=== PATIENT | female | born 1990 | race Caucasian/White ===

== ENCOUNTER 2021-05-05 16:16 | Inpatient (IN) | payer MEDICAID, SELFPAY ==
[2021-05-05 16:33] VITALS: BP 116/91; PULSE 97; RESP 17; TEMP 36.6; O2SAT 97; BMI 18.6
--- NOTE | 2021-05-05 17:07 | XRR_ITS ---
PROCEDURE INFORMATION: Exam: XR Chest Exam date and time: 05/05/2021 5:07 PM Age: 31 years old Clinical indication: Shortness of breath; Additional info: Dyspnea, vomiting TECHNIQUE: Imaging protocol: XR of the chest. Views: 1 view. COMPARISON: No relevant prior studies available. FINDINGS: Lungs: Unremarkable. No consolidation. Pleural spaces: Unremarkable. No pleural effusion. No pneumothorax. Heart/Mediastinum: Unremarkable. No cardiomegaly. Bones/joints: Unremarkable. XR/XR chest 1V portable [id number] IMPRESSION: No acute findings.
[2021-05-05 17:09] VITALS: BP 155/101; TEMP 36.8
[2021-05-05] MEDS: famotidine 20 mg/2 mL INJ 40 MG IVP (17:32)
[2021-05-05] MEDS: ondansetron 2 mg/ML SDV 2 mL 4 MG IVP ×2 (17:32→23:43)
[2021-05-05] MEDS: sodium chloride 0.9% 1,000 ML 999 ML IV ×3 (17:33→20:57)
--- NOTE | 2021-05-05 17:51 | ED_ITS ---
HPI - General Adult General: Chief complaint: Nausea/Vomiting/Diarrhea Stated complaint: FLU LIKE SYMPTOMS Time Seen by Provider: 05/05/21 16:37 History of Present Illness: Patient is a 31-year-old female who presents the emergency room with complaints of generalized abdominal pain, nausea and vomiting and decreased stooling 3 days. Per patient, suspended, patient has not been able to hold any food down. Patient reports significant upper quadrant izabela pain. Patient denies any diarrhea outside of symptom. Patient reports significant nausea vomiting chills but denies any fever cough, nasal sore throat. Patient has body ache around the stomach area. Otherwise denies chest pain, short of breath palpitation or lightheadedness. Patient denies any melena/hematochezia easier prior history kidney stones, or new vaginal discharge. 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 Patient denies any history of gastroparesis, diabetes, or marijuana use recently. Onset: 3 days ago Duration:3 days Location:home Severity:moderate Associated symptoms: Reports nausea and vomiting; Deny chest pain, dyspnea, rash or palpitations Review of Systems Const: Denies: fever(s) or chills Eyes: Denies: change in vision ENMT: Denies: mouth pain Card: Denies: chest pain or palpitations Resp: Denies: dyspnea or non-productive cough GI: Reports: abdominal pain, nausea and vomiting; Denies: diarrhea : Denies: dysuria Musc: Denies: extremity pain Skin/Breast: Denies: rash or new lesions Neuro: Denies: weakness in extremities Psych: Reports: other (Normal mood) Marty/Lymph: Denies: easy bruising [facility] ED PFSH: Social History (Updated 05/05/21 @ 17:53 by Tyrone Mcclellan MD) Smoking and tobacco status: never smoked Alcohol intake: never Substance/Drug Use: never Physical Exam Const: COMMON NORMALS: alert HENMT: COMMON NORMALS: atraumatic HEAD & SCALP: atraumatic MOUTH: moist mucous membranes abnormal Eye: COMMON NORMALS: EOMs intact bilaterally and conjunctivae normal CONJUNCTIVA: Yes conjunctivae normal Neck/C-Spine: COMMON NORMALS: full ROM and supple Resp: COMMON NORMALS: normal respiratory effort and clear to auscultation bilaterally AUSCULTATION: clear to auscultation bilaterally Cardio: COMMON NORMALS: regular rate RATE: regular rate GI: COMMON NORMALS: Soft to palpation PALPATION: Yes Soft to palpation OTHER: +generalized abd TTP worse in the epigastric area. NO guarding rebound, guarding, rigidity. +b/l CVA tenderness to percussion. Neg Palacios/Neg McBurney's point tenderness, no suprabupic tenderness to palpation. Extremity: COMMON NORMALS: full ROM Neuro: SENSORIUM/ORIENTATION: Yes alert MOTOR EXAM: No Abnormal motor strength present and Other motor observations present (no focal motor deficits) Psych: COMMON NORMALS: speech normal SPEECH: Yes normal speech MOOD & AFFECT: Yes euthymic mood Course Vital Signs: Vital signs: Vital Signs Temperature 98.2 F 05/05/21 17:09 Pulse Rate 97 05/05/21 16:33 Respiratory Rate 17 05/05/21 16:33 Blood Pressure 155/101 05/05/21 17:09 Pulse Oximetry 97 05/05/21 16:33 [facility] - General Adult Medical Decision Making 31-year-old female presents emergency room with generalized abdominal pain nausea vomiting since Monday. On exam, patient has diffuse tenderness palpation worse in the midepigastric area. Patient appears to be dry on exam. Patient has a white count 15.2. CT abdomen pelvis showed diffuse pancreatitis. Lipase of greater than [address] scans found to have acute interstitial pancreatitis. S/p zofran and IVF. Patient failed p.o. challenge in the ED. Disposition: admission Lab Data : 05/05/21 18:00 05/05/21 18:00 Radiology Impressions Chest X-Ray 05/05/21 17:07 IMPRESSION: No acute findings. Abdomen/Pelvis CT 05/05/21 18:35 IMPRESSION: 1. Findings consistent with acute interstitial edematous pancreatitis. 2. Acute peripancreatic fluid with extension into the lesser sac, retroperitoneum, and pericolic gutters. 3. Submucosal fatty deposition within the colon. Mild colitis in the transverse and descending colon is not excluded. 4. 4.2 cm left ovarian cyst. No further imaging is recommended. (Reference: Keyur) References: Keyur et al. Management of Incidental Adnexal Findings on CT and MRI: A White Paper of the ACR Incidental Findings Committee, J Am Crystal Radiol. 2019;17(2):248-254. Laboratory Results WBC 15.2 10^3/uL (4.0-10.0) H 05/05/21 18:00 RBC 4.81 10^6/uL (4.1-5.3) 05/05/21 18:00 Hgb 16.4 g/dL (11.5-15.3) H 05/05/21 18:00 Hct 48.6 % (37.0-47.0) H 05/05/21 18:00 MCV 101.0 fl (81-99) H 05/05/21 18:00 MCH 34.1 pg (28.0-34.0) H 05/05/21 18:00 MCHC 33.7 g/dL (30.0-36.0) 05/05/21 18:00 RDW 12.5 % (12.1-15.1) 05/05/21 18:00 Plt Count 170 10^3/cmm (130-400) 05/05/21 18:00 MPV 9.0 fL (7.4-10.4) 05/05/21 18:00 Neut % (Auto) 89.5 % 05/05/21 18:00 Lymph % (Auto) 2.0 % 05/05/21 18:00 Lane % (Auto) 7.4 % 05/05/21 18:00 Eos % (Auto) 0.0 % 05/05/21 18:00 Baso % (Auto) 0.6 % 05/05/21 18:00 Neut # (Auto) 13.59 10^3/uL (1.8-7.7) H 05/05/21 18:00 Lymph # (Auto) 0.3 10^3/uL (0.8-4.8) L 05/05/21 18:00 Lane # (Auto) 1.1 10^3/uL (0.2-0.9) H 05/05/21 18:00 Eos # (Auto) 0.0 10^3/uL (0.0-0.8) 05/05/21 18:00 Baso # (Auto) 0.1 10^3/uL (0.0-0.1) 05/05/21 18:00 Nucleated RBC % (auto) 0 % 05/05/21 18:00 Nucleated RBCs # 0.0 /100WBC 05/05/21 18:00 Sodium 131 mmol/L (136-145) L 05/05/21 18:00 Potassium 4.5 mmol/L (3.5-5.1) 05/05/21 18:00 Chloride 100 mmol/L (98-107) 05/05/21 18:00 Carbon Dioxide 10 mmol/L (22-29) L 05/05/21 18:00 Anion Gap 25.5 (5-19) H 05/05/21 18:00 BUN 15 mg/dL (6-20) 05/05/21 18:00 Creatinine 0.7 mg/dL (0.5-0.9) 05/05/21 18:00 GFR Calculation 98.3 mL/min (90-130) 05/05/21 18:00 Glucose 96 mg/dL (65-115) 05/05/21 18:00 Calculated Osmolality 273 mOsm/kg (285-295) L 05/05/21 18:00 Calcium 8.9 mg/dL (8.5-10.5) 05/05/21 18:00 Total Bilirubin 0.6 mg/dL (0.15-1.2) 05/05/21 18:00 AST 72 U/L (0-32) H 05/05/21 18:00 ALT 34 U/L (0-33) H 05/05/21 18:00 Alkaline Phosphatase 107 IU/L (35-105) H 05/05/21 18:00 Total Protein 7.6 g/dL (6.6-8.7) 05/05/21 18:00 Albumin 3.9 g/dL (3.5-5.2) 05/05/21 18:00 Globulin 3.7 g/dL (1.3-4.6) 05/05/21 18:00 Lipase > 3904 U/L (13-60) H 05/05/21 18:00 HCG, Qual Negative (Negative) 05/05/21 18:00 Nasal Influ A H1 2009 PCR Not detected (NOT DETECT) 05/05/21 19:35 Coronavirus 229E (PCR) Not detected (NOT DETECT) 05/05/21 15:45 Influenza A (H1) PCR Not detected (NOT DETECT) 05/05/21 19:35 Influenza A (H3) PCR Not detected (NOT DETECT) 02/16/22 19:35 Influenza Type A Ag Cancelled 05/05/21 15:45 Influenza Type A (PCR) Not detected (NOT DETECT) 05/05/21 19:35 Influenza Type B Ag Cancelled 05/05/21 15:45 Influenza Type B (PCR) Not detected (NOT DETECT) 05/05/21 19:35 SARS-CoV-2 (PCR) Not detected (NOT DETECT) 05/05/21 15:45 Imaging Data Other Imaging: Radiologist's impression: [address] [address] [address] Scan Report Signed Patient: Shelbi Luna Unit #: [id number] : 1990 Age/Sex: 31 / F ADM Date: 05/05/21 Loc: ER Room/Bed: Attending Dr: Ordering Provider/Ordering MD: Tyrone Mcclellan MD Date of Service: 05/05/21 Procedure(s): CT abdomen pelvis w con* [id number] Accession Number(s): [id number] Report Number: [id number] PROCEDURE INFORMATION: Exam: CT Abdomen And Pelvis With Contrast Exam date and time: 05/05/2021 6:35 PM Age: 31 years old Clinical indication: Fever and nausea and vomiting; Patient HX: N/v with generalized abdominal pain; Additional info: Eval for infection TECHNIQUE: Imaging protocol: Computed tomography of the abdomen and pelvis with contrast. Radiation optimization: All CT scans at this facility use at least one of these dose optimization techniques: automated exposure control; mA and/or kV adjustment per patient size (includes targeted exams where dose is matched to clinical indication); or iterative reconstruction. Contrast material: OMNI 300; Contrast volume: 95 ml; Contrast route: INTRAVENOUS (IV);? COMPARISON: CR (CHEST, ) 05/05/2021 5:26 PM RADIATION DOSE METRICS: Total DLP (mGy-cm): 722.67 FINDINGS: Liver: Normal. No mass. Gallbladder and bile ducts: Phrygian cap in the gallbladder, a normal variant. No visible gallstones. The bile ducts are normal. Pancreas: Diffuse parenchymal edema in the pancreas. No focal lesion identified. Acute peripancreatic fluid which extends into the lesser sac, retroperitoneum, along the transverse colon, and in the pericolic gutters. No organized pseudocyst. Spleen: Normal. No splenomegaly. Adrenal glands: Normal. No mass. Kidneys and ureters: Normal. No hydronephrosis. Stomach and bowel: Submucosal fatty deposition in the ascending, transverse, and descending colon. Mild superimposed wall thickening is not entirely excluded. The colon is decompressed. The stomach and small bowel are unremarkable. No obstruction. Appendix: The appendix is visualized and is normal. Intraperitoneal space: Mild pelvic ascites. No free air. Vasculature: Unremarkable. No abdominal aortic aneurysm. Lymph nodes: Unremarkable. No enlarged lymph nodes. Urinary bladder: Unremarkable as visualized. Reproductive: 4.2 cm fluid density left ovarian cyst, Hounsfield units 20. The uterus and right ovary are unremarkable. Bones/joints: Lumbar scoliosis. No fracture. Soft tissues: Unremarkable. CT/CT abdomen pelvis w con* [id number] IMPRESSION: 1. Findings consistent with acute interstitial edematous pancreatitis. 2. Acute peripancreatic fluid with extension into the lesser sac, retroperitoneum, and pericolic gutters. 3. Submucosal fatty deposition within the colon.? Mild colitis in the transverse and descending colon is not excluded. 4. 4.2 cm left ovarian cyst. No further imaging is recommended. (Reference: Keyur) ? References: Baer et al. Management of Incidental Adnexal Findings on CT and MRI: A White Paper of the ACR Incidental Findings Committee, J Am Crystal Radiol. 2020 Apr;17(2):248-254. ? ? Dictated By: Rip Salmeron Signed By: Rip Salmeron Signed Date/Time: 05/05/211934 DD/ 34 Discharge Plan Discharge Patient Disposition: Admitted As Inpatient Clinical Impression: Abdominal pain, Nausea & vomiting, Acute pancreatitis Condition: Stable Discharge Diet: Advance as tolerated Discharge Activity: Increase activity as tolerated Coding Level of Care Code ED Imaging Engineer for Chg Fwd Exam Comprehensive
[2021-05-05 18:05] LABS: Basophils # 0.1 10^3/uL (0.0-0.1); Basophils % 0.6 %; Hematocrit 48.6 % (37.0-47.0); Hemoglobin 16.4 g/dL (11.5-15.3); Lymphocytes # 0.3 10^3/uL (0.8-4.8); Mean Corpuscular HGB Conc 33.7 g/dL (30.0-36.0); Mean Corpuscular Hemoglobin 34.1 pg (28.0-34.0); Monocytes # 1.1 10^3/uL (0.2-0.9); Monocytes % 7.4 %; Neutrophils # 13.59 10^3/uL (1.8-7.7); Neutrophils % 89.5 %; Nucleated Red Blood Cells % 0 %; Platelet Count 170 10^3/cmm (130-400); Red Blood Count 4.81 10^6/uL (4.1-5.3); Red Cell Distribution Width 12.5 % (12.1-15.1); White Blood Count 15.2 10^3/uL (4.0-10.0)
[2021-05-05 18:19] LABS: HCG, Serum Qual Negative (Negative)
[2021-05-05 18:30] LABS: Alanine Aminotransferase 34 U/L (0-33); Albumin Level 3.9 g/dL (3.5-5.2); Alkaline Phosphatase 107 IU/L (35-105); Blood Urea Nitrogen 15 mg/dL (6-20); Calcium 8.9 mg/dL (8.5-10.5); Carbon Dioxide 10 mmol/L (22-29); Chloride 100 mmol/L (98-107); Globulin 3.7 g/dL (1.3-4.6); Glomerular Filtration Rate 98.3 mL/min (90-130); Glucose 96 mg/dL (65-115); Osmolality Calculated 273 mOsm/kg (285-295); Sodium 131 mmol/L (136-145); Total Bilirubin 0.6 mg/dL (0.15-1.2); Total Protein 7.6 g/dL (6.6-8.7)
--- NOTE | 2021-05-05 18:35 | CTR_ITS ---
PROCEDURE INFORMATION: Exam: CT Abdomen And Pelvis With Contrast Exam date and time: 05/05/2021 6:35 PM Age: 31 years old Clinical indication: Fever and nausea and vomiting; Patient HX: N/v with generalized abdominal pain; Additional info: Eval for infection TECHNIQUE: Imaging protocol: Computed tomography of the abdomen and pelvis with contrast. Radiation optimization: All CT scans at this facility use at least one of these dose optimization techniques: automated exposure control; mA and/or kV adjustment per patient size (includes targeted exams where dose is matched to clinical indication); or iterative reconstruction. Contrast material: OMNI 300; Contrast volume: 95 ml; Contrast route: INTRAVENOUS (IV); COMPARISON: CR (CHEST, ) 05/05/2021 5:26 PM RADIATION DOSE METRICS: Total DLP (mGy-cm): 722.67 FINDINGS: Liver: Normal. No mass. Gallbladder and bile ducts: Phrygian cap in the gallbladder, a normal variant. No visible gallstones. The bile ducts are normal. Pancreas: Diffuse parenchymal edema in the pancreas. No focal lesion identified. Acute peripancreatic fluid which extends into the lesser sac, retroperitoneum, along the transverse colon, and in the pericolic gutters. No organized pseudocyst. Spleen: Normal. No splenomegaly. Adrenal glands: Normal. No mass. Kidneys and ureters: Normal. No hydronephrosis. Stomach and bowel: Submucosal fatty deposition in the ascending, transverse, and descending colon. Mild superimposed wall thickening is not entirely excluded. The colon is decompressed. The stomach and small bowel are unremarkable. No obstruction. Appendix: The appendix is visualized and is normal. Intraperitoneal space: Mild pelvic ascites. No free air. Vasculature: Unremarkable. No abdominal aortic aneurysm. Lymph nodes: Unremarkable. No enlarged lymph nodes. Urinary bladder: Unremarkable as visualized. Reproductive: 4.2 cm fluid density left ovarian cyst, Hounsfield units 20. The uterus and right ovary are unremarkable. Bones/joints: Lumbar scoliosis. No fracture. Soft tissues: Unremarkable. CT/CT abdomen pelvis w con* [id number] IMPRESSION: 1. Findings consistent with acute interstitial edematous pancreatitis. 2. Acute peripancreatic fluid with extension into the lesser sac, retroperitoneum, and pericolic gutters. 3. Submucosal fatty deposition within the colon. Mild colitis in the transverse and descending colon is not excluded. 4. 4.2 cm left ovarian cyst. No further imaging is recommended. (Reference: Keyur) References: Keyur et al. Management of Incidental Adnexal Findings on CT and MRI: A White Paper of the ACR Incidental Findings Committee, J Am Crystal Radiol. 2019;17(2):248-254.
[2021-05-05 18:48] LABS: Anion Gap 25.5 (5-19); Aspartate Amino Transferase 72 U/L (0-32); Potassium 4.5 mmol/L (3.5-5.1)
[2021-05-05] MEDS: iohexol 300 mg/mL 100 mL Btl IV (18:56)
[2021-05-05 19:20] VITALS: RESP 17
[2021-05-05] MEDS: morphine 4 mg/mL SDV 1 mL IVP ×2 (19:20→23:43)
[2021-05-05 19:33] LABS: Adenovirus Not Detected (NOT DETECT); Chlamydia Pneumoniae Not Detected (NOT DETECT); Coronavirus 229E,HKU1,NL63,OC4 Not Detected (NOT DETECT); Human Metapneumovirus Not Detected (NOT DETECT); Human Rhinovirus/Enterovirus Not Detected (NOT DETECT); Influenza A Not Detected (NOT DETECT); Influenza A H1 Not Detected (NOT DETECT); Influenza A H1-2009 Not Detected (NOT DETECT); Influenza A H3 Not Detected (NOT DETECT); Influenza B Not Detected (NOT DETECT); Mycoplasma Pneumoniae Not Detected (NOT DETECT); Parainfluenza Virus Type 1 Not Detected (NOT DETECT); Parainfluenza Virus Type 2 Not Detected (NOT DETECT); Parainfluenza Virus Type 3 Not Detected (NOT DETECT); Parainfluenza Virus Type 4 Not Detected (NOT DETECT); Respiratory Syncytial Virus A Not Detected (NOT DETECT); Respiratory Syncytial Virus B Not Detected (NOT DETECT); SARS-COV-2 Not Detected (NOT DETECT)
[2021-05-05 19:35] LABS: Influenza A Not Detected (NOT DETECT); Influenza A H1 Not Detected (NOT DETECT); Influenza A H1-2009 Not Detected (NOT DETECT); Influenza A H3 Not Detected (NOT DETECT); Influenza B Not Detected (NOT DETECT); Results from GENMARK
--- NOTE | 2021-05-05 20:05 | P.HP_ITS ---
Providers/Chief Complaint Admitting Physician: Mario Mcrae MD, hospitalist Chief Complaint: FLU LIKE SYMPTOMS History of Present Illness Shelbi Luna is a 31 year old female who presents with 3 days of nausea, vomiting, epigastric pain. The pain radiates to her back. It is sharp. She reports no coffee-ground emesis, blood in her stool or black or tarry stool. She has never had this happen before. Last alcohol intake was over a week ago. Denies any fever, or significant cough. She vomited multiple times, ultimately dry heaving. Denies any significant past medical history problems and no THC use. Review of Systems General: Reports: 10 or more systems reviewed and unremarkable except in HPI and below Const: Denies: fever(s) or chills Eyes: Denies: change in vision ENMT: Denies: throat pain Card: Denies: chest pain Resp: Denies: dyspnea GI: Reports: abdominal pain, nausea and vomiting; Denies: hematemesis, hematochezia or melena : Denies: flank pain Musc: Denies: neck pain Skin/Breast: Denies: rash Neuro: Denies: headache(s) Psych: Denies: anxiety Endo: Denies: polyuria Marty/Lymph: Denies: easy bruising All/Imm: Denies: urticaria Medications/Allergies Home Medications Medication Instructions Recorded Confirmed Last Taken Type acetaminophen 500 mg tablet 500 mg PO Q6H PRN 5 Days #20 tab 05/05/21 Unknown Rx calcium carbonate 1,000 1 tab PO TID PRN 7 Days #21 tab 05/05/21 Unknown Rx mg-simethicone 60 mg chewable tablet (Maalox Advanced) famotidine 20 mg tablet (Pepcid) 20 mg PO BID PRN 10 Days #20 tab 05/05/21 Unknown Rx ondansetron HCl 4 mg tablet 4 mg PO TID PRN 4 Days #12 tab 05/05/21 Unknown Rx (Zofran) PFSH Acute PFSH: Social History (Updated 05/05/21 @ 20:07 by Mario Mcrae MD) Smoking and tobacco status: never smoked Alcohol intake: current Alcohol intake frequency: few times a week Substance/Drug Use: never Other PFSH information: Supplemental PFSH Information: Denies any significant family history, past medical history, surgical history Vitals/I&O/Wt Last Vital Signs Temp 98.2 F 05/05/21 17:09 Pulse 97 05/05/21 16:33 Resp 17 05/05/21 16:33 BP 155/101 05/05/21 17:09 Pulse Ox 97 05/05/21 16:33 Weight last 48 hrs Weight 52.163 kg Physical Exam Narrative: General exam is a white female, reporting her abdominal pain is somewhat better after morphine but still present. She points to her epigastric area. HEENT: Atraumatic normocephalic. Oropharynx clear. Neck is supple no lymphadenopathy or thyromegaly Cardiovascular regular rate and rhythm without murmur, no S3 or S4 Lungs clear no wheezing or crackles Abdomen is soft. The bowel sounds are noted. Tenderness in epigastric area. No obvious organomegaly exams deferred Extremities no cyanosis clubbing or edema, cap refill brisk Skin no rash Neuro no focal deficits. Data : 05/05/21 18:00 05/05/21 18:00 Micro: Anion gap 25 AST 72, ALT 34, alk phos 107 Calcium 8.9 Bilirubin 0.6 Lipase greater than 3900 Albumin 3.9 hCG negative Urinalysis pending PCR negative, influenza negative Abdominal pelvic CT demonstrates findings consistent with acute edematous pancreatitis, with some peripancreatic fluid. 4.2 cm left ovarian cyst. Chest x-ray negative A&P Assessment and plan (1) Acute pancreatitis: Significant acute pancreatitis. No obvious cause. Last alcohol intake per history was 1 week ago. No family history of any pancreatitis. Check triglyceride level N.p.o. except clear liquids as tolerated. Discussed with patient to limit amount Pain control Nausea control Repeat lipase tomorrow Observation currently Status: Acute (2) Abdominal pain: Secondary to acute pancreatitis. Cannot rule out duodenal ulcer or cholecystitis completely. LFTs and alk phos slightly high. Will place on Protonix IV, and check gallbladder ultrasound as well. Ultrasound is more sensitive for gallbladder than CT. Check hepatitis panel. Status: Acute Plan Full code Lovenox for DVT prophylaxis Attestations Medical Necessity Statement*: Will need less than 2 midnight stay for evaluation and treatment of acute pancreatitis. Coding Level of Care Code Acute Improvement Rn for [employer] Diagnoses Acute pancreatitis K85.90 Abdominal pain R10.9
[2021-05-05 20:25] LABS: Add Urine Microscopic? YES; Bilirubin Urine Neg (Negative); Blood Urine 2+ (Negative); Glucose Urine UA Norm (Normal); Ketones Urine 3+ (Negative); Leukocyte Esterase Urine Negative (Negative); Nitrate Urine Negative (Negative); Protein Urine Trace (Negative); Specific Gravity, Urine 1.015 (1.005-1.030); Urine Appearance Clear (CLEAR); Urine Color Yellow (Yellow); Urobilinogen Urine Neg (Negative); pH Urine 5 (5-7)
[2021-05-05 20:26] LABS: Add Urine Culture? No; Fine Granular Casts Urine 0-4 /lpf; Hyaline Casts Urine 0-4 /lpf; RBC Urine RARE /hpf (0-2); Squamous Epithelial Cell Urine 0-4 /hpf (0-5)
[2021-05-05 20:30] VITALS: BP 158/90; PULSE 66; RESP 19; O2SAT 97
[2021-05-05 20:44] LABS: Thyroid Stimulating Hormone 1.03 uIU/mL (0.27-4.20); Triglycerides 198 mg/dL (0-150)
--- NOTE | 2021-05-05 20:51 | USR_ITS ---
PROCEDURE INFORMATION: Exam: US Abdomen, Limited; Right Upper Quadrant Exam date and time: 05/05/2021 8:51 PM Age: 31 years old Clinical indication: Nausea and vomiting; Abdominal pain; Acute; Patient HX: PT reports nausea/vomiting and severe back pain; Additional info: Transaminitis TECHNIQUE: Imaging protocol: US abdomen. Real time ultrasound with image documentation. Limited exam focused on the right upper quadrant. COMPARISON: CT abdomen pelvis w con* [id number] 05/05/2021 6:55 PM FINDINGS: Liver: The liver is hyperechoic. Gallbladder: The gallbladder is folded with a possible septation. No gallstones. No wall thickening. Common bile duct: Common bile duct 3 mm. Pancreas: Mild inhomogeneity of the pancreas. No focal lesion identified. Right kidney: Normal. No mass. No hydronephrosis. Intraperitoneal space: Small amount of free fluid adjacent to the gallbladder and posterior to left liver lobe. US/US gall bladder [id number] IMPRESSION: 1. No visible gallstones or gallbladder wall thickening. There is folding and a possible septation in the gallbladder. 2. Mild inhomogeneity of the pancreas with scattered fluid. This most likely represents acute pancreatitis, when correlated with the CT findings.
[2021-05-05 21:20] VITALS: RESP 17
[2021-05-05] MEDS: pantoprazole 40 mg SDV IVP (21:20)
[2021-05-05] MEDS: enoxaparin 40 mg/0.4 mL Syringe SUBCUT (21:20)
[2021-05-05] MEDS: morphine 4 mg/mL SDV 1 mL 2 MG IVP (21:20)
[2021-05-05 21:39] LABS: Hepatitis A Antibody IgM Non-Reactive (Nonreactive); Hepatitis B Core IgM Non-Reactive (Nonreactive); Hepatitis B Surface Antigen Non-Reactive (Nonreactive); Hepatitis C Virus Antibody Non-Reactive (Nonreactive)
[2021-05-05 23:20] VITALS: BMI 18.6
[2021-05-05] MEDS: dextrose 5%-sod chloride 0.9% 1,000 ML 125 ML IV (23:27)
[2021-05-05 23:43] VITALS: RESP 20
[2021-05-05] MEDS: acetaminophen 325 mg Tablet 650 MG PO (23:44)
[2021-05-06] VITALS (18 sets, daily range): BP systolic 104–172; BP diastolic 62–118; PULSE 76–144; RESP 13–22; TEMP 36.6–38.1; O2SAT 96–100
[2021-05-06] MEDS: hyDRALAzine 20 mg/mL INJ 1 mL 10 MG IVP ×4 (01:01→19:39)
[2021-05-06] MEDS: HYDROmorphone 1 mg/mL INJ 1 mL 0.5 MG IVP ×8 (01:02→21:42)
[2021-05-06 05:15] LABS: Basophils % 0.3 %; Hematocrit 42.6 % (37.0-47.0); Lymphocytes # 0.6 10^3/uL (0.8-4.8); Mean Corpuscular HGB Conc 35.2 g/dL (30.0-36.0); Mean Corpuscular Hemoglobin 34.7 pg (28.0-34.0); Mean Corpuscular Volume 98.6 fl (81-99); Mean Platelet Volume 9.7 fL (7.4-10.4); Monocytes # 1.1 10^3/uL (0.2-0.9); Monocytes % 7.1 %; Neutrophils # 13.33 10^3/uL (1.8-7.7); Neutrophils % 88.1 %; Nucleated Red Blood Cells % 0 %; Platelet Count 145 10^3/cmm (130-400); Red Blood Count 4.32 10^6/uL (4.1-5.3); Red Cell Distribution Width 12.8 % (12.1-15.1); White Blood Count 15.1 10^3/uL (4.0-10.0)
[2021-05-06 05:40] LABS: Alanine Aminotransferase 27 U/L (0-33); Albumin Level 3.8 g/dL (3.5-5.2); Alkaline Phosphatase 94 IU/L (35-105); Anion Gap 15.9 (5-19); Aspartate Amino Transferase 57 U/L (0-32); Blood Urea Nitrogen 8 mg/dL (6-20); Calcium 8.1 mg/dL (8.5-10.5); Carbon Dioxide 15 mmol/L (22-29); Chloride 102 mmol/L (98-107); Glomerular Filtration Rate 144.9 mL/min (90-130); Glucose 161 mg/dL (65-115); Magnesium 1.3 mg/dL (1.7-2.3); Osmolality Calculated 270 mOsm/kg (285-295); Potassium 3.9 mmol/L (3.5-5.1); Sodium 129 mmol/L (136-145); Total Bilirubin 0.5 mg/dL (0.15-1.2); Total Protein 6.8 g/dL (6.6-8.7)
[2021-05-06] MEDS: sodium chloride 0.9% 1,000 ML 125 ML IV ×3 (05:51→21:44)
[2021-05-06 06:24] LABS: Lipase 3925 U/L (13-60)
[2021-05-06] MEDS: pantoprazole 40 mg SDV IVP ×2 (08:52→20:36)
[2021-05-06] MEDS: multivitamin therapeutic Tablet 1 TAB PO (08:52)
[2021-05-06] MEDS: thiamine 100 mg Tablet PO (08:52)
[2021-05-06] MEDS: magnesium sulfate premix 2 GM/50 ML PIGGYBACK IV (08:52)
[2021-05-06] MEDS: folic acid 1 mg Tablet PO (08:52)
--- NOTE | 2021-05-06 10:19 | PC.CHAP ---
Pastoral Care Encounter/Spiritual Assessment Type of Contact [] Declined retail project merchandiser visit [] Patient/Family/Request visit [] Outpatient visit [] Follow-up visit [] Physician referral [] Code/Alert [x] Routine visit [] Staff referral [] Actively dying [] Patient sleeping [] Family support [] [] Out of room [] Palliative care [] [x] Receiving care in room [] Pre-surgical visit [] Trauma [] Long length of stay [] ICU visit [] Other: Relational/Emotional Strength [] Patient feels connected with others/family/visitors/staff [] Distress [] Loneliness/isolation [] Abandonment Spirituality of Patient [] Person of Tricia [] Attends Bahai of their Tricia [] Believes in Prayer [] Reads Bible or Caodaism materials [] There are Spiritual issues to be addressed Fruit And Vegetable Parer Interventions [] Prayer [] Active listening [] Non-anxious presence [] Spiritual/emotional support [] Crisis/trauma care [] Spiritual counseling [] Bereavement support [] Provided bereavement packet [] Provided Bible/devotional materials [] Provided toy/stuffed animal, coloring book to patient or family member [] Provided Communion [] Anointing/Onida [] Salvation [] Completed spiritual assessment [] Other: Impact on Illness or Injury [] Angry [] Fearful [x] Anxious [] Often cries [] Exhaustion [] Unable to work [] Unable to attend scientology [] Unable to walk/stand [] Unable to read [] Unable to drive [] Unable to eat/drink [] Unable to sleep [] Unable to be with family [] Patient intubated [] Other: Summary 31 this the first time deal with Pancritis floods to bring up her Humons feels good has a good attitude waiting doctors report Time spent with patient 10 mins
--- NOTE | 2021-05-06 12:37 | PC.SOCIAL ---
[facility] applications signed by patient and sent back to smita wyatt
[2021-05-06] MEDS: acetaminophen 325 mg Tablet 650 MG PO (19:39)
[2021-05-06] MEDS: enoxaparin 40 mg/0.4 mL Syringe SUBCUT (20:36)
--- NOTE | 2021-05-06 20:56 | P.PN_ITS ---
Subjective Subjective: Upper abdominal pain/discomfort in a circular fashion from epigastrium encircling both sides. Intermittent nausea. Eructation. No appetite. Vitals/I&O/Wt Last Vital Signs Temp 100.5 F H 05/06/21 20:00 Pulse 142 H 05/06/21 20:00 Resp 18 05/06/21 20:00 BP 104/103 05/06/21 20:00 Pulse Ox 97 05/06/21 20:00 05/06/21 05/06/21 05/06/21 06:59 14:59 22:59 Intake Total 1000 / 1000 5050 / 5050 Output Total 550 / 550 600 / 600 200 / 800 Balance 450 / 450 4450 / 4450 -200 / 4250 Weight last 48 hrs Weight 52.163 kg Weight 52.163 kg Physical Exam Const: COMMON NORMALS: no acute distress and patient oriented x3 OTHER: Appears tired or slightly impaired, mildly slurred slowed speech. HENMT: COMMON NORMALS: oropharynx normal Neck/C-Spine: COMMON NORMALS: no JVD Resp: COMMON NORMALS: normal respiratory effort and clear to auscultation bilaterally AUSCULTATION: clear to auscultation bilaterally Cardio: COMMON NORMALS: no JVD, regular rhythm, S1 normal heart sound present, S2 normal heart sound present and No murmurs present (Cardio) RHYTHM: regular rhythm HEART SOUNDS: S1 normal heart sound present and S2 normal heart sound present GI: COMMON NORMALS: Normal to inspection, nondistended, normoactive bowel sounds present, Soft to palpation and non-tender PALPATION: Yes Soft to palpation Extremity: COMMON NORMALS: no joint enlargement and no pedal edema Neuro: COMMON NORMALS: patient oriented x3 and moves all extremities Skin: COMMON NORMALS: no rashes or lesions noted GENERAL SKIN EXAM: no rashes or lesions noted Data : 05/06/21 04:22 05/06/21 04:22 A&P Assessment and plan (1) Acute pancreatitis: Reports excessive alcohol intake, reports she has a plan to stop drinking with support of her friend, and if she cannot stop on her own will be seeking rehab. Discussed with her we will request CM to provide resources for her to be able to seek rehabilitation. States she should be able to stop without difficulty given she always rosie up before work days and does not ever drink while working. Nonbiliary. Triglycerides not significantly elevated. Calcium okay. Continue IVF. N.p.o. except clear liquids as tolerated. Discussed with patient to limit amount Pain control Nausea control Repeat lipase Status: Acute (2) Abdominal pain: Secondary to acute pancreatitis. No sign of acute cholecystitis on ultrasound. Continue Protonix. Negative hepatitis panel. Status: Acute Plan Alcohol withdrawal: Tachycardia, nausea, denies history of severe alcohol withdrawal with seizure, delirium, CIWA protocol added this morning. Continue. Full code Lovenox for DVT prophylaxis Attestations Medical Necessity Statement*: Continue admission for assessment management of acute pancreatitis. Coding Level of Care Code Acute Cutting Table Operator First for [facility] Diagnoses Acute pancreatitis K85.90 Abdominal pain R10.9
--- NOTE | 2021-05-06 21:28 | PC.NURSE ---
2000 Pt sitting up in bed using cell phone. Reports abd pain to be better at present. VS noted to be out of range. Tylenol and hydralazine given per PRN order. Pt appears slightly anxious. Says she does not feel bad. Tolerates liquids well. Denies nausea.
--- NOTE | 2021-05-06 21:48 | PC.NURSE ---
2139 Ambulating in room. Reports abd pain/bloating returning. Says walking seems to help some. Pain med given as ordered prn. VS retaken. Temp improved. Others remain same. See VS log. Will continue to monitor.
--- NOTE | 2021-05-06 22:11 | PC.NURSE ---
2[address] at 133 noted.
[2021-05-06] MEDS: LORazepam 2 mg/mL INJ 1 mL IM (22:39)
--- NOTE | 2021-05-06 22:43 | PC.NURSE ---
2240 Pt axious, jumpy to loud sounds or person entering room. HR 160-170. Lorazepam given as ordered.
--- NOTE | 2021-05-06 22:56 | PC.NURSE ---
5397 Dr. Mcrae notified of pt VS and CIWA score. Aware of interventions of medications given. He say ok nothing further at this time. Continue to observe.
--- NOTE | 2021-05-06 23:15 | PC.NURSE ---
2310 Pt sleeping on side in bed. HR 140-160. Dr. Mcrae aware.
[2021-05-07] VITALS (12 sets, daily range): BP systolic 135–152; BP diastolic 85–101; PULSE 114–138; RESP 16–20; TEMP 36.9–38.3; O2SAT 97–99
[2021-05-07] MEDS: acetaminophen 325 mg Tablet 650 MG PO (03:49)
[2021-05-07] MEDS: LORazepam 2 mg/mL INJ 1 mL IVP (03:50)
--- NOTE | 2021-05-07 03:54 | PC.NURSE ---
0350 Pt awake after vitals signs taken. Easily jumps/scares when person enters pt room. High alert to alarms on unit. CIWA 10. Lorazepam 2mg IVP given as ordered. Tylenol given for temp as ordered. Note VS log.
--- NOTE | 2021-05-07 04:48 | PC.NURSE ---
0445 Resting in bed. Resp E/U. No distress. Temp 99.2, HR 113.
[2021-05-07 05:31] LABS: Basophils # 0.1 10^3/uL (0.0-0.1); Basophils % 0.7 %; Eosinophils % 0.1 %; Hematocrit 37.5 % (37.0-47.0); Hemoglobin 13.4 g/dL (11.5-15.3); Lymphocytes # 0.5 10^3/uL (0.8-4.8); Lymphocytes % 5.6 %; Mean Corpuscular HGB Conc 35.7 g/dL (30.0-36.0); Mean Corpuscular Hemoglobin 33.8 pg (28.0-34.0); Mean Corpuscular Volume 94.7 fl (81-99); Mean Platelet Volume 10.6 fL (7.4-10.4); Monocytes # 1.1 10^3/uL (0.2-0.9); Monocytes % 12.9 %; Neutrophils # 6.64 10^3/uL (1.8-7.7); Neutrophils % 80.3 %; Nucleated Red Blood Cells % 0 %; Platelet Count 110 10^3/cmm (130-400); Red Blood Count 3.96 10^6/uL (4.1-5.3); Red Cell Distribution Width 12.6 % (12.1-15.1); White Blood Count 8.3 10^3/uL (4.0-10.0)
[2021-05-07] MEDS: sodium chloride 0.9% 1,000 ML 125 ML IV ×3 (05:35→21:27)
[2021-05-07 05:56] LABS: Alanine Aminotransferase 17 U/L (0-33); Albumin Level 3.3 g/dL (3.5-5.2); Alkaline Phosphatase 63 IU/L (35-105); Anion Gap 15.8 (5-19); Aspartate Amino Transferase 40 U/L (0-32); Blood Urea Nitrogen 6 mg/dL (6-20); Calcium 8.1 mg/dL (8.5-10.5); Carbon Dioxide 18 mmol/L (22-29); Chloride 98 mmol/L (98-107); Globulin 2.2 g/dL (1.3-4.6); Glomerular Filtration Rate 261.2 mL/min (90-130); Glucose 79 mg/dL (65-115); Magnesium 1.6 mg/dL (1.7-2.3); Osmolality Calculated 265 mOsm/kg (285-295); Sodium 129 mmol/L (136-145); Total Bilirubin 0.5 mg/dL (0.15-1.2); Total Protein 5.5 g/dL (6.6-8.7)
--- NOTE | 2021-05-07 06:00 | XR_ITS ---
WS: [id number] Portable AP upright chest, 05/07/2021 Clinical Data: Hypoxia Comparison: Portable chest, 05/05/2021. Findings: There are bilateral basilar pulmonary opacities consistent with pneumonia and/or atelectasi s. There is a small right pleural effusion. The diaphragms are slightly elevated because of the limit ed inspiratory effort. The heart is normal. No nodules or masses are seen. Monitor leads are on the c hest wall. XR/XR chest 1V portable [id number] Impression: 1. Bilateral basilar pulmonary opacities consistent with pneumonia and/or atele ctasis. 2. Small right pleural effusion.
[2021-05-07 06:07] LABS: Potassium 2.8 mmol/L (3.5-5.1)
[2021-05-07 06:24] LABS: Lipase 1040 U/L (13-60)
[2021-05-07] MEDS: HYDROmorphone 1 mg/mL INJ 1 mL 0.5 MG IVP ×4 (08:39→19:37)
[2021-05-07] MEDS: lidocaine 1% 5 ML in potassium chloride premix 100 ML 25 ML IV ×2 (09:08→21:27)
[2021-05-07] MEDS: magnesium sulfate premix 2 GM/50 ML PIGGYBACK IV (09:09)
[2021-05-07] MEDS: folic acid 1 mg Tablet PO (09:10)
[2021-05-07] MEDS: pantoprazole 40 mg SDV IVP ×2 (09:10→21:27)
[2021-05-07] MEDS: multivitamin therapeutic Tablet 1 TAB PO (09:11)
[2021-05-07] MEDS: thiamine 100 mg Tablet PO (09:11)
--- NOTE | 2021-05-07 17:52 | PC.NURSE ---
patient has remained tachy throughout the day. MD silveira
--- NOTE | 2021-05-07 19:13 | PM.PN ---
Subjective Subjective: Still slightly better. Still intermittent nausea. Tolerating small amounts of oral intake. Not ready to advance diet. Occasional single dry heaves. Vitals/I&O/Wt Last Vital Signs Temp 99.4 F 05/07/21 16:00 Pulse 117 H 05/07/21 16:00 Resp 18 05/07/21 16:55 BP 146/97 05/07/21 16:00 Pulse Ox 99 05/07/21 16:00 05/07/21 05/07/21 05/07/21 06:59 14:59 22:59 Intake Total 1181.25 / 7419.167 1342.5 / 1342.5 240 / 1582.5 Output Total 1000 / 1000 200 / 1200 Balance 1181.25 / 6619.167 342.5 / 342.5 40 / 382.5 Weight last 48 hrs Weight 52.163 kg Physical Exam Const: COMMON NORMALS: no acute distress and patient oriented x3 OTHER: Sluggish. HENMT: COMMON NORMALS: oropharynx normal Neck/C-Spine: COMMON NORMALS: no JVD Resp: COMMON NORMALS: normal respiratory effort and clear to auscultation bilaterally AUSCULTATION: clear to auscultation bilaterally Cardio: COMMON NORMALS: no JVD, regular rhythm, S1 normal heart sound present, S2 normal heart sound present and No murmurs present (Cardio) RHYTHM: regular rhythm HEART SOUNDS: S1 normal heart sound present and S2 normal heart sound present GI: COMMON NORMALS: Normal to inspection, nondistended, normoactive bowel sounds present, Soft to palpation and non-tender PALPATION: Yes Soft to palpation Extremity: COMMON NORMALS: no joint enlargement and no pedal edema Neuro: COMMON NORMALS: patient oriented x3 and moves all extremities Skin: COMMON NORMALS: no rashes or lesions noted GENERAL SKIN EXAM: no rashes or lesions noted Data : 05/07/21 04:19 05/07/21 04:19 A&P Assessment and plan (1) Acute pancreatitis: Reports excessive alcohol intake, reports she has a plan to stop drinking with support of her friend, and if she cannot stop on her own will be seeking rehab. Discussed with her we will request to provide resources for her to be able to seek rehabilitation. States she should be able to stop without difficulty given she always rosie up before work days and does not ever drink while working. Nonbiliary. Triglycerides not significantly elevated. Calcium okay. Continue IVF. N.p.o. except clear liquids as tolerated. Discussed with patient to limit amount Pain control Nausea control Repeat lipase Status: Acute (2) Aspiration pneumonia: With possible sepsis, sinus tachycardia, fever up to 101 Fahrenheit this morning at 4 AM. Chest x-ray with bilateral basilar pulmonary opacities, small right pleural effusion. Collect blood cultures. Start Zosyn. Status: Acute (3) Abdominal pain: Secondary to acute pancreatitis. No sign of acute cholecystitis on ultrasound. Continue Protonix. Negative hepatitis panel. Status: Acute (4) Hypokalemia: Received replacement. Recheck level. Status: Acute (5) Hypomagnesemia: Received replacement. Recheck level. Status: Acute Plan Alcohol withdrawal: Tachycardia, nausea, denies history of severe alcohol withdrawal with seizure, delirium, CIWA protocol added this morning. Continue. CM to provide resources for rehabilitation. Number cytopenia: Suspected related to alcohol abuse, possibly related to sepsis. Full code Lovenox for DVT prophylaxis Attestations Medical Necessity Statement*: Continue admission for assessment management of acute pancreatitis, aspiration pneumonia. Coding Level of Care Code Acute Outsole Scheduler for [facility] Diagnoses Acute pancreatitis K85.90 Abdominal pain R10.9 Aspiration pneumonia J69.0 Hypokalemia E87.6 Hypomagnesemia E83.42
[2021-05-07] MEDS: piperacillin-tazobactam 3.375 GM in sodium chloride 0.9% (plus) 50 ML IV (19:31)
[2021-05-07] MEDS: hyDRALAzine 20 mg/mL INJ 1 mL 10 MG IVP (19:31)
[2021-05-07 19:54] LABS: Magnesium 1.8 mg/dL (1.7-2.3)
[2021-05-07 19:57] LABS: Potassium 2.9 mmol/L (3.5-5.1)
--- NOTE | 2021-05-07 21:03 | PC.NURSE ---
Voalte message sent to Dr. Summers regarding patients elevated heart rate along with potassium of 2.9. New order 40meq k-rider x's 1 now.
[2021-05-07] MEDS: enoxaparin 40 mg/0.4 mL Syringe SUBCUT (21:27)
[2021-05-08] VITALS (15 sets, daily range): BP systolic 120–151; BP diastolic 81–110; PULSE 86–126; RESP 16–18; TEMP 36.4–37.8; O2SAT 94–99
[2021-05-08] MEDS: HYDROmorphone 1 mg/mL INJ 1 mL 0.5 MG IVP ×6 (00:01→20:38)
[2021-05-08] MEDS: piperacillin-tazobactam 3.375 GM in sodium chloride 0.9% (plus) 50 ML IV ×3 (02:09→18:18)
[2021-05-08 05:10] LABS: Basophils % 1.1 %; Eosinophils % 1.6 %; Hematocrit 34.1 % (37.0-47.0); Hemoglobin 12.1 g/dL (11.5-15.3); Lymphocytes # 0.6 10^3/uL (0.8-4.8); Lymphocytes % 30.5 %; Mean Corpuscular HGB Conc 35.5 g/dL (30.0-36.0); Mean Corpuscular Hemoglobin 34.2 pg (28.0-34.0); Mean Corpuscular Volume 96.3 fl (81-99); Mean Platelet Volume 10.6 fL (7.4-10.4); Monocytes # 0.4 10^3/uL (0.2-0.9); Monocytes % 20.5 %; Neutrophils % 45.8 %; Nucleated Red Blood Cells % 0 %; Platelet Count 141 10^3/cmm (130-400); Red Blood Count 3.54 10^6/uL (4.1-5.3); White Blood Count 1.9 10^3/uL (4.0-10.0)
[2021-05-08 05:46] LABS: Alanine Aminotransferase 15 U/L (0-33); Albumin Level 3.4 g/dL (3.5-5.2); Alkaline Phosphatase 69 IU/L (35-105); Aspartate Amino Transferase 27 U/L (0-32); Blood Urea Nitrogen 3 mg/dL (6-20); Calcium 8.3 mg/dL (8.5-10.5); Carbon Dioxide 22 mmol/L (22-29); Chloride 100 mmol/L (98-107); Glomerular Filtration Rate 261.2 mL/min (90-130); Glucose 91 mg/dL (65-115); Lipase 193 U/L (13-60); Magnesium 1.6 mg/dL (1.7-2.3); Osmolality Calculated 270 mOsm/kg (285-295); Sodium 132 mmol/L (136-145); Total Bilirubin 0.6 mg/dL (0.15-1.2); Total Protein 6.4 g/dL (6.6-8.7)
[2021-05-08 06:14] LABS: Neutrophils # 0.87 10^3/uL (1.8-7.7); Slide Review Slide Review Perform
[2021-05-08] MEDS: multivitamin therapeutic Tablet 1 TAB PO (08:41)
[2021-05-08] MEDS: thiamine 100 mg Tablet PO (08:41)
[2021-05-08] MEDS: folic acid 1 mg Tablet PO (08:41)
[2021-05-08] MEDS: pantoprazole 40 mg SDV IVP ×2 (08:41→20:38)
[2021-05-08] MEDS: sodium chloride 0.9% 1,000 ML 125 ML IV ×2 (10:41→20:39)
[2021-05-08] MEDS: magnesium sulfate premix 2 GM/50 ML PIGGYBACK IV (10:42)
--- NOTE | 2021-05-08 18:07 | PM.PN ---
Subjective Subjective: Bothered by upper abdominal pain, in a circular pattern radiating around the abdomen encircling to the back. Less appetite today. Loose stools today. Vitals/I&O/Wt Last Vital Signs Temp 99.3 F 05/08/21 14:52 Pulse 107 H 05/08/21 14:52 Resp 16 05/08/21 14:52 BP 134/91 05/08/21 14:52 Pulse Ox 97 05/08/21 14:52 05/08/21 05/08/21 05/08/21 06:59 14:59 22:59 Intake Total 1185 / 5447.5 750 / 750 50 / 800 Output Total 1100 / 2700 400 / 400 Balance 85 / 2747.5 350 / 350 50 / 400 Physical Exam Const: COMMON NORMALS: no acute distress and patient oriented x3 HENMT: COMMON NORMALS: oropharynx normal Neck/C-Spine: COMMON NORMALS: no JVD Resp: COMMON NORMALS: normal respiratory effort and clear to auscultation bilaterally AUSCULTATION: clear to auscultation bilaterally Cardio: COMMON NORMALS: no JVD, regular rhythm, S1 normal heart sound present, S2 normal heart sound present and No murmurs present (Cardio) RHYTHM: regular rhythm HEART SOUNDS: S1 normal heart sound present and S2 normal heart sound present GI: COMMON NORMALS: Normal to inspection, nondistended, normoactive bowel sounds present and Soft to palpation PALPATION: Yes Soft to palpation and Yes Tenderness to palpation present (GI) Details: other (Upper) Extremity: COMMON NORMALS: no joint enlargement and no pedal edema Neuro: COMMON NORMALS: patient oriented x3 and moves all extremities Skin: COMMON NORMALS: no rashes or lesions noted GENERAL SKIN EXAM: no rashes or lesions noted Data : 05/08/21 04:40 05/08/21 04:40 Micro: Microbiology 05/07/21 19:27 Blood Culture - Preliminary Blood SPECIMEN COLLECTED 05/07/21 19: Blood Culture - Preliminary Blood SPECIMEN COLLECTED A&P Assessment and plan (1) Acute pancreatitis: Lipase improving, down to 183, but still pain today. Follow-up tired. P.o. intake is tolerating. Replace electrolytes. CM provided her with resources for alcohol use disorder rehabilitation. Nonbiliary. Triglycerides not significantly elevated. Calcium okay. Continue IVF. N.p.o. except clear liquids as tolerated. Discussed with patient to limit amount Pain control Nausea control Repeat lipase Status: Acute (2) Leukopenia: Worsened leukopenia today with neutropenia and delusional effect with IV fluids. Discussed with her. Suspect bone marrow suppression secondary to EtOH. Possible sepsis with pneumonia with leukopenia, sinus tachycardia. Less likely Zosyn since this was only started last night with counseling before that. Recheck counts. Encourage abstinence from EtOH. Status: Acute (3) Aspiration pneumonia: Possible sepsis with leukopenia, sinus tachycardia. Fever, fever subsiding. Chest x-ray with bilateral basilar pulmonary opacities, small right pleural effusion. Follow blood cultures. For now continue Zosyn. Status: Acute (4) Abdominal pain: Secondary to acute pancreatitis. No sign of acute cholecystitis on ultrasound. Continue Protonix. Negative hepatitis panel. Status: Acute (5) Hypokalemia: Given replacement. Recheck level. Status: Acute (6) Hypomagnesemia: Given replacement. Recheck level. Status: Acute Plan Alcohol withdrawal: Tachycardia, nausea, denies history of severe alcohol withdrawal with seizure, delirium, CIWA protocol added this morning. Continue. CM provided resources for rehabilitation. Full code Lovenox for DVT prophylaxis Attestations Medical Necessity Statement*: Continue admission for assessment management of acute pancreatitis, with poor oral intake, electrolyte deficiencies, leukopenia. Coding Level of Care Code Acute Warp Scouring Vat Tender for [facility] Diagnoses Acute pancreatitis K85.90 Aspiration pneumonia J69.0 Abdominal pain R10.9 Hypokalemia E87.6 Hypomagnesemia E83.42 Leukopenia D72.819
[2021-05-08] MEDS: enoxaparin 40 mg/0.4 mL Syringe SUBCUT (20:38)
[2021-05-08] MEDS: hyDRALAzine 20 mg/mL INJ 1 mL 10 MG IVP (23:58)
[2021-05-09] VITALS (8 sets, daily range): BP systolic 138–158; BP diastolic 96–110; PULSE 94–110; RESP 14–18; TEMP 36.3–36.8; O2SAT 94–100
[2021-05-09] MEDS: HYDROmorphone 1 mg/mL INJ 1 mL 0.5 MG IVP ×2 (01:06→05:16)
[2021-05-09] MEDS: piperacillin-tazobactam 3.375 GM in sodium chloride 0.9% (plus) 50 ML IV ×3 (03:55→18:14)
[2021-05-09 04:57] LABS: Basophils # 0.1 10^3/uL (0.0-0.1); Basophils % 1.3 %; Eosinophils # 0.1 10^3/uL (0.0-0.8); Eosinophils % 2.2 %; Hematocrit 34.2 % (37.0-47.0); Hemoglobin 12.1 g/dL (11.5-15.3); Lymphocytes # 0.8 10^3/uL (0.8-4.8); Lymphocytes % 16.5 %; Mean Corpuscular HGB Conc 35.4 g/dL (30.0-36.0); Mean Corpuscular Hemoglobin 34.2 pg (28.0-34.0); Mean Corpuscular Volume 96.6 fl (81-99); Mean Platelet Volume 9.5 fL (7.4-10.4); Monocytes # 1.3 10^3/uL (0.2-0.9); Monocytes % 28.4 %; Neutrophils # 2.36 10^3/uL (1.8-7.7); Neutrophils % 51.2 %; Nucleated Red Blood Cells % 0 %; Platelet Count 200 10^3/cmm (130-400); Red Blood Count 3.54 10^6/uL (4.1-5.3); Red Cell Distribution Width 13.2 % (12.1-15.1); White Blood Count 4.6 10^3/uL (4.0-10.0)
[2021-05-09 05:17] LABS: Alanine Aminotransferase 14 U/L (0-33); Albumin Level 3.1 g/dL (3.5-5.2); Alkaline Phosphatase 70 IU/L (35-105); Anion Gap 12.4 (5-19); Aspartate Amino Transferase 23 U/L (0-32); Blood Urea Nitrogen 2 mg/dL (6-20); Carbon Dioxide 21 mmol/L (22-29); Chloride 102 mmol/L (98-107); Globulin 2.9 g/dL (1.3-4.6); Glomerular Filtration Rate 417.1 mL/min (90-130); Glucose 116 mg/dL (65-115); Lipase 33 U/L (13-60); Magnesium 1.7 mg/dL (1.7-2.3); Osmolality Calculated 273 mOsm/kg (285-295); Sodium 133 mmol/L (136-145); Total Bilirubin 0.4 mg/dL (0.15-1.2)
[2021-05-09] MEDS: sodium chloride 0.9% 1,000 ML 125 ML IV (05:17)
[2021-05-09 05:19] LABS: Potassium 2.4 mmol/L (3.5-5.1)
[2021-05-09 05:34] LABS: Slide Review Slide Review Perform
[2021-05-09] MEDS: lidocaine 1% 5 ML in potassium chloride premix 100 ML 25 ML IV ×2 (06:32→10:53)
[2021-05-09] MEDS: pantoprazole 40 mg SDV IVP ×2 (08:28→19:52)
[2021-05-09] MEDS: thiamine 100 mg Tablet PO (08:28)
[2021-05-09] MEDS: multivitamin therapeutic Tablet 1 TAB PO (08:28)
[2021-05-09] MEDS: folic acid 1 mg Tablet PO (08:28)
[2021-05-09] MEDS: hyDRALAzine 20 mg/mL INJ 1 mL 10 MG IVP (08:50)
[2021-05-09] MEDS: magnesium sulfate premix 2 GM/50 ML PIGGYBACK IV (08:52)
--- NOTE | 2021-05-09 09:00 | PC.NURSE ---
BP 158/110. PRN Hydrazine given due to diastolic greater than 100.
--- NOTE | 2021-05-09 14:33 | PM.PN ---
Subjective Subjective: Today she is feeling better. She is having less abdominal pain. Request to wean down off Dilaudid. Wants to try advancing diet. Vitals/I&O/Wt Last Vital Signs Temp 97.6 F 05/09/21 11:19 Pulse 110 H 05/09/21 11:19 Resp 18 05/09/21 11:19 BP 145/97 05/09/21 11:19 Pulse Ox 97 05/09/21 11:19 05/08/21 05/09/21 05/09/21 22:59 06:59 14:59 Intake Total 1460 / 2210 1000 / 3210 395 / 395 Balance 1460 / 1810 1000 / 2810 395 / 395 Physical Exam Const: COMMON NORMALS: no acute distress and patient oriented x3 HENMT: COMMON NORMALS: oropharynx normal Neck/C-Spine: COMMON NORMALS: no JVD Resp: COMMON NORMALS: normal respiratory effort and clear to auscultation bilaterally AUSCULTATION: clear to auscultation bilaterally Cardio: COMMON NORMALS: no JVD, regular rhythm, S1 normal heart sound present, S2 normal heart sound present and No murmurs present (Cardio) RHYTHM: regular rhythm HEART SOUNDS: S1 normal heart sound present and S2 normal heart sound present GI: COMMON NORMALS: Normal to inspection, nondistended, normoactive bowel sounds present and Soft to palpation PALPATION: Yes Soft to palpation and Yes Tenderness to palpation present (GI) Extremity: COMMON NORMALS: no joint enlargement and no pedal edema Neuro: COMMON NORMALS: patient oriented x3 and moves all extremities Skin: COMMON NORMALS: no rashes or lesions noted GENERAL SKIN EXAM: no rashes or lesions noted Data : 05/09/21 04:07 05/09/21 04:07 Micro: Microbiology 05/09/21 01:00 C.difficile Toxin B Gene (PCR) - Final Stool 05/07/21 19:27 Blood Culture - Preliminary Blood NEGATIVE TO DATE 05/07/21 19:22 Blood Culture - Preliminary Blood NEGATIVE TO DATE A&P Assessment and plan (1) Acute pancreatitis: Symptoms better today. De-escalate analgesic. She wants to try advancing diet, also try pur?ed. Requested. Additional electrolyte replacement for severe hypokalemia, hypomagnesemia. Normalized. Recheck electrolytes in the morning, if tolerating advancement of diet, sepsis resolved, no further issues, anticipate likely discharge. CM provided her with resources for alcohol use disorder rehabilitation. Nonbiliary. Triglycerides not significantly elevated. Calcium okay. Stop IVF. N.p.o. except clear liquids as tolerated. Discussed with patient to limit amount Pain control Nausea control Repeat lipase Status: Acute (2) Leukopenia: Today resolved. Suspect bone marrow suppression secondary to EtOH. Possible sepsis with pneumonia with leukopenia, sinus tachycardia. Less likely Zosyn since this was only started last night with counseling before that and now resolved. Recheck counts. Encourage abstinence from EtOH. Multiple diarrheal bowel movements. C. difficile checked, negative. Status: Acute (3) Aspiration pneumonia: Sepsis resolving, fever resolving, tachycardia improving, WBC count normalized. Oxygenating well on room air. If no further issues anticipate likely should be able to discharge in the morning. Chest x-ray with bilateral basilar pulmonary opacities, small right pleural effusion. Follow blood cultures. For now continue Zosyn. Status: Acute (4) Abdominal pain: Multiple episodes of diarrhea. C. difficile negative. Secondary to acute pancreatitis. No sign of acute cholecystitis on ultrasound. Continue Protonix. Negative hepatitis panel. Status: Acute (5) Hypokalemia: Severe hyperkalemia, additional replacement today. Replace magnesium. Recheck potassium level. May need additional supplementation at discharge. Status: Acute (6) Hypomagnesemia: Replace hypomagnesemia, recheck level. Status: Acute Plan Alcohol withdrawal: Appears resolved, she is awake, alert, lucid, tachycardia improving. SARAH provided resources for rehabilitation. Full code Lovenox for DVT prophylaxis Attestations Medical Necessity Statement*: Continue admission for assessment of management and acute pancreatitis, advancement of diet, discontinue IV fluid, replacement electrolytes, treatment of pneumonia with resolving sepsis. Coding Level of Care Code Acute Bulk System Operator for [facility] Fwd Diagnoses Acute pancreatitis K85.90 Leukopenia D72.819 Aspiration pneumonia J69.0 Abdominal pain R10.9 Hypokalemia E87.6 Hypomagnesemia E83.42
[2021-05-09] MEDS: HYDROcodone-acetaminophen 5-325 mg Tablet 1 TAB PO ×2 (15:35→21:18)
[2021-05-09] MEDS: enoxaparin 40 mg/0.4 mL Syringe SUBCUT (19:52)
[2021-05-10] VITALS: BP 145/109; PULSE 88; RESP 17; TEMP 36.6; O2SAT 100
[2021-05-10] MEDS: piperacillin-tazobactam 3.375 GM in sodium chloride 0.9% (plus) 50 ML IV (03:46)
[2021-05-10 04:00] VITALS: BP 134/94; PULSE 93; RESP 17; TEMP 36.2; O2SAT 100
[2021-05-10 05:16] LABS: Anion Gap 12.7 (5-19); Calcium 8.5 mg/dL (8.5-10.5); Carbon Dioxide 26 mmol/L (22-29); Chloride 102 mmol/L (98-107); Glomerular Filtration Rate 261.2 mL/min (90-130); Glucose 120 mg/dL (65-115); Magnesium 1.7 mg/dL (1.7-2.3); Sodium 138 mmol/L (136-145)
[2021-05-10 05:17] LABS: Blood Urea Nitrogen 1 mg/dL (6-20); Osmolality Calculated 283 mOsm/kg (285-295)
[2021-05-10 05:18] LABS: Potassium 2.7 mmol/L (3.5-5.1)
[2021-05-10] MEDS: HYDROcodone-acetaminophen 5-325 mg Tablet 1 TAB PO (06:05)
[2021-05-10] MEDS: lidocaine 1% 5 ML in potassium chloride premix 100 ML 25 ML IV ×2 (06:05→10:29)
--- NOTE | 2021-05-10 06:36 | PC.NURSE ---
Spoke to Dr Monsivais to verify krider and po potassium orders were meant to be given in addition to the [address] Summers ordered. He said no to d/c both his orders and continue with the order previously placed by Dr. Summers.
[2021-05-10 06:59] LABS: Magnesium 1.7 mg/dL (1.7-2.3)
[2021-05-10 08:00] VITALS: BP 147/109; PULSE 95; RESP 13; O2SAT 100
--- NOTE | 2021-05-10 08:42 | PM.DCS ---
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 She was diagnosed with our loose pancreatitis which resolved with conservative management. Coffee-ground emesis also resolved she remained hemodynamically stable. No recurrence of hematemesis. She was given 80 mEq of potassium on 05/10, magnesium 1.7. She'll be given potassium supplements along magnesium at the time of discharge. Patient has been given a referral for [facility] and she is willing and motivated to quit alcohol. Physical Exam Narrative: Awake and alert Nonfocal neuro exam No signs of dehydration S1, S2 Abdominal pain Nonfocal neuro exam Saturating well on room air EOMI, PERRLA Discharge Data Studies Completed and Pending Completed Studies During Hospitalization Category Date Time Status CT abdomen pelvis w con* [id number] Urgent Cat Scan 05/05/21 18:35 Completed XR chest 1V portable [id number] Routine Exams 05/07/21 06:00 Completed XR chest 1V portable [id number] Stat Exams 05/05/21 17:07 Completed US gall bladder [id number] Routine Ultrasound 05/05/21 20:51 Completed Pending at discharge Category Date Time Status Blood Culture Stat Lab 05/07/21 19:27 Results Radiology Impressions Abdomen/Pelvis CT 05/05/21 18:35 IMPRESSION: 1. Findings consistent with acute interstitial edematous pancreatitis. 2. Acute peripancreatic fluid with extension into the lesser sac, retroperitoneum, and pericolic gutters. 3. Submucosal fatty deposition within the colon. Mild colitis in the transverse and descending colon is not excluded. 4. 4.2 cm left ovarian cyst. No further imaging is recommended. (Reference: Keyur) References: Keyur et al. Management of Incidental Adnexal Findings on CT and MRI: A White Paper of the ACR Incidental Findings Committee, J Am Crystal Radiol. 2019;17(2):248-254. Gallbladder Ultrasound 05/05/21 20:51 IMPRESSION: 1. No visible gallstones or gallbladder wall thickening. There is folding and a possible septation in the gallbladder. 2. Mild inhomogeneity of the pancreas with scattered fluid. This most likely represents acute pancreatitis, when correlated with the CT findings. Chest X-Ray 05/07/21 06:00 Impression: 1. Bilateral basilar pulmonary opacities consistent with pneumonia and/or atelectasis. 2. Small right pleural effusion. Laboratory Results WBC 4.6 10^3/uL (4.0-10.0) 05/09/21 04:07 RBC 3.54 10^6/uL (4.1-5.3) L 05/09/21 04:07 Hgb 12.1 g/dL (11.5-15.3) 05/09/21 04:07 Hct 34.2 % (37.0-47.0) L 05/09/21 04:07 MCV 96.6 fl (81-99) 05/09/21 04:07 MCH 34.2 pg (28.0-34.0) H 05/09/21 04:07 MCHC 35.4 g/dL (30.0-36.0) 05/09/21 04:07 RDW 13.2 % (12.1-15.1) 05/09/21 04:07 Plt Count 200 10^3/cmm (130-400) D 05/09/21 04:07 MPV 9.5 fL (7.4-10.4) 05/09/21 04:07 Neut % (Auto) 51.2 % 05/09/21 04:07 Lymph % (Auto) 16.5 % 05/09/21 04:07 Long % (Auto) 28.4 % 05/09/21 04:07 Eos % (Auto) 2.2 % 05/09/21 04:07 Baso % (Auto) 1.3 % 05/09/21 04:07 Neut # (Auto) 2.36 10^3/uL (1.8-7.7) 05/09/21 04:07 Lymph # (Auto) 0.8 10^3/uL (0.8-4.8) 05/09/21 04:07 Long # (Auto) 1.3 10^3/uL (0.2-0.9) H 05/09/21 04:07 Eos # (Auto) 0.1 10^3/uL (0.0-0.8) 05/09/21 04:07 Baso # (Auto) 0.1 10^3/uL (0.0-0.1) 05/09/21 04:07 Nucleated RBC % (auto) 0 % 05/09/21 04:07 Nucleated RBCs # 0.0 /100WBC 05/09/21 04:07 Sodium 138 mmol/L (136-145) 05/10/21 04:13 Potassium 2.7 mmol/L (3.5-5.1) L* 05/10/21 04:13 Chloride 102 mmol/L (98-107) 05/10/21 04:13 Carbon Dioxide 26 mmol/L (22-29) 05/10/21 04:13 Anion Gap 12.7 (5-19) 05/10/21 04:13 BUN 1 mg/dL (6-20) L 05/10/21 04:13 Creatinine 0.3 mg/dL (0.5-0.9) L 05/10/21 04:13 GFR Calculation 261.2 mL/min (90-130) H 05/10/21 04:13 Glucose 120 mg/dL (65-115) H 05/10/21 04:13 Calculated Osmolality 283 mOsm/kg (285-295) L 05/10/21 04:13 Calcium 8.5 mg/dL (8.5-10.5) 05/10/21 04:13 Magnesium 1.7 mg/dL (1.7-2.3) 05/10/21 04:14 Total Bilirubin 0.4 mg/dL (0.15-1.2) 05/09/21 04:07 AST 23 U/L (0-32) 05/09/21 04:07 ALT 14 U/L (0-33) 05/09/21 04:07 Alkaline Phosphatase 70 IU/L (35-105) 05/09/21 04:07 Total Protein 6.0 g/dL (6.6-8.7) L 05/09/21 04:07 Albumin 3.1 g/dL (3.5-5.2) L 05/09/21 04:07 Globulin 2.9 g/dL (1.3-4.6) 05/09/21 04:07 Triglycerides 198 mg/dL (0-150) H 05/05/21 18:00 Lipase 33 U/L (13-60) 05/09/21 04:07 TSH 1.03 uIU/mL (0.27-4.20) 05/05/21 18:00 HCG, Qual Negative (Negative) 05/05/21 18:00 Urine Color Yellow (Yellow) 05/05/21 19:36 Urine Appearance Clear (CLEAR) 05/05/21 19:36 Urine pH 5 (5-7) 05/05/21 19:36 Ur Specific Macy 1.015 (1.005-1.030) 05/05/21 19:36 Urine Protein Trace (Negative) 05/05/21 19:36 Urine Glucose (UA) Norm (Normal) 05/05/21 19:36 Urine Ketones 3+ (Negative) H 05/05/21 19:36 Urine Blood 2+ (Negative) H 05/05/21 19:36 Urine Nitrate Negative (Negative) 05/05/21 19:36 Urine Bilirubin Neg (Negative) 05/05/21 19:36 Urine Urobilinogen Neg mg/dL (Negative) 05/05/21 19:36 Ur Leukocyte Esterase Negative (Negative) 05/05/21 19:36 Urine RBC Rare /hpf (0-2) 05/05/21 19:36 Urine WBC None /hpf (0-5) 05/05/21 19:36 Ur Squamous Epith Cells 0-4 /hpf (0-5) H 05/05/21 19:36 Amorphous Sediment Not Reportable 05/05/21 19:36 Urine Bacteria None /hpf (NONE) 05/05/21 19:36 Hyaline Casts 0-4 /lpf H 05/05/21 19:36 Fine Granular Casts 0-4 /lpf H 05/05/21 19:36 Nasal Influ A H1 2008 PCR Not detected (NOT DETECT) 05/05/21 19:35 Coronavirus 229E (PCR) Not detected (NOT DETECT) 05/05/21 15:45 Hepatitis A IgM Ab Non-reactive (Nonreactive) 05/05/21 18:20 Hep Bs Antigen Non-reactive (Nonreactive) 05/05/21 18:20 Hep B Core IgM Ab Non-reactive (Nonreactive) 05/05/21 18:20 Hepatitis C Antibody Non-reactive (Nonreactive) 05/05/21 18:20 Influenza A (H1) PCR Not detected (NOT DETECT) 05/05/21 19:35 Influenza A (H3) PCR Not detected (NOT DETECT) 05/05/21 19:35 Influenza Type A Ag Cancelled 05/05/21 15:45 Influenza Type A (PCR) Not detected (NOT DETECT) 05/05/21 19:35 Influenza Type B Ag Cancelled 05/05/21 15:45 Influenza Type B (PCR) Not detected (NOT DETECT) 05/05/21 19:35 SARS-CoV-2 (PCR) Not detected (NOT DETECT) 05/05/21 15:45 Vitals Last Vital Signs Temp 97.2 F L 05/10/21 04:00 Pulse 95 05/10/21 08:00 Resp 13 05/10/21 08:00 BP 147/109 05/10/21 08:00 Pulse Ox 100 05/10/21 08:00 Discharge Plan Discharge Patient Disposition: Home Condition: Stable Prescriptions: New folic acid 1 mg Tablet 1 mg PO DAILY Qty: 60 0RF Vitamin B-1 (mononitrate) 100 mg Tablet 100 mg PO DAILY Qty: 6 0RF potassium chloride 20 mEq tablet extended release 20 meq PO DAILY Qty: 20 0RF magnesium 200 mg tablet 200 mg PO DAILY Qty: 20 0RF Discharge Orders: Discharge Order (Routine); Ordered 05/10/21 Ordered By: Darrell Monsivais Other Ambulatory Orders: Basic Metabolic Panel (Routine) Timeframe: 3 Days Facility: [facility] - Location: Lab - Main Lab Ordered By: Darrell Monsivais Referrals: [facility] - [place], [Staff Physician] - 4-7 days (please go to [facility] for follow up) Discharge Diet: Advance as tolerated Discharge Activity: Increase activity as tolerated Patient Instructions: Alcohol Abuse, Potassium Chloride (By mouth), Folic Acid (By mouth), Magnesium (By mouth), Pancreatitis (GEN), Abdominal Pain (ED), Opioid Safety Activity Restrictions/Additional Instructions: Please come back if you have any worsening abdominal pain, fever or chills, nausea or vomiting, diarrhea, blood in the stool, inability hold down liquid or solids, or any new concerning complaints. Our onsite case manager will have you follow-up with a primary care provider in the next few days. You would be expected to have a phone call with our onsite case manager who will put you on the schedule. You can expect a call from us in the next 2-3 days. please come to PLEASE COME TO [facility] FOR LABS Discharge Attestations Time Spent in Discharge Care*: less than 30 min Quality Metrics Clinical Quality Measures [ No reported AMI, CVA or VTE this stay] Coding Level of Care Code Acute g FW DC note Diagnoses Acute pancreatitis K85.90 Leukopenia D72.819 Aspiration pneumonia J69.0 Abdominal pain R10.9 Hypokalemia E87.6 Hypomagnesemia E83.42
[2021-05-10] MEDS: multivitamin therapeutic Tablet 1 TAB PO (10:20)
[2021-05-10] MEDS: folic acid 1 mg Tablet PO (10:21)
[2021-05-10] MEDS: thiamine 100 mg Tablet PO (10:21)
[2021-05-10] MEDS: pantoprazole 40 mg SDV IVP (10:21)
--- NOTE | 2021-05-10 10:48 | PC.NURSE ---
Dr. Monsivais discontinued IV antibiotics. PT discharging with oral antibiotics
[2021-05-10 11:39] VITALS: BP 148/105; PULSE 93; RESP 13; TEMP 36.6; O2SAT 99
--- NOTE | 2021-05-10 15:31 | PC.NURSE ---
Discharged and follow up appointments discussed with patient. Verbalized understanding.
[2021-05-10 15:32] VITALS: BP 148/105; PULSE 93; RESP 13; TEMP 36.6; O2SAT 99
== END 2021-05-10 15:35 | disposition home or self-care (01) | DRG 438 ==
LOC: ER 19:30 → MEDSURG 20:35
PROVIDERS: Internal Medicine; Admitting Provider Internal Medicine; Emergency Provider Emergency Medicine; Visit Provider Internal Medicine
DX: K85.20 Alcohol induced acute pancreatitis without necrosis or infection (principal); J69.0 Pneumonitis due to inhalation of food and vomit; F10.139 Alcohol abuse with withdrawal, unspecified; F10.188 Alcohol abuse with other alcohol-induced disorder; Y90.9 Presence of alcohol in blood, level not specified; E87.6 Hypokalemia; E83.42 Hypomagnesemia; D70.8 Other neutropenia; D75.89 Other specified diseases of blood and blood-forming organs
CPT/HCPCS: 36415; 71045; 74177; 76705; 80048; 80053; 80074; 81001; 83690; 83735; 84132; 84443; 84478; 84703; 85025; 87040; 87493; 87631; 87635; 96372; C9113; G0378; J0360; J1170; J1650; J2060; J2270; J2405; J2543; J3411; J3475; J3480; J3490; J7030; Q9967

== ENCOUNTER 2022-04-10 17:28 | Emergency (ER) | payer MEDICAID, SELFPAY ==
[2022-04-10 17:41] VITALS: BP 141/100; PULSE 98; RESP 16; TEMP 36.7; O2SAT 99
--- NOTE | 2022-04-10 18:17 | ECG_ITS ---
[facility] Test Date: 2022-04-10 Pat Name: Shelbi Luna Department: Room: Gender: Female Data Typist: : 1990 Requested By: Dany Cr Order Number: [id number] Walton MD: Julio Mckeon M.D. Measurements Intervals [place] Rate: 99 P: 64 [place]: 118 QRS: 69 QRSD: 90 T: 50 QT: 348 QTc: 447 Interpretive Statements SINUS RHYTHM WITH SHORT [place] INTERVAL NONSPECIFIC T-WAVE ABNORMALITY No previous ECG available for comparison Electronically Signed On 04-12-2022 7:44:09 EMAIL MARKETING SPECIALIST by Julio Mckeon M.D. [id number]
--- NOTE | 2022-04-10 18:18 | ED_ITS ---
HPI - General Adult General: Chief complaint: General Medical Stated complaint: whole body cramping up Time Seen by Provider: 04/10/22 18:04 History of Present Illness: Patient is a 32-year-old female comes to the ED with episode of whole body cramps. Episode occurred just prior to arrival. She was sitting in vehicle when she started developing some pain and cramping in her hands and she states that her fingers started locking out and getting stiff. Cramping then moved through her arms and then throughout her entire body and her legs. She started breaking out in a sweat. Episode lasted approximately 20 to 30 minutes and symptoms improved after she stopped at a gas station and got some Gatorade started drinking it. She also reports having some shakiness in her hands when it started and she still having some shakiness here in the ED. Muscle cramping throughout her body has pretty much resolved before arriving to the ED. She has had panic attacks in the past but states this 1 felt a little different. Denies any chest pain or shortness of breath. Denies any history of diabetes Associated symptoms: Reports diaphoresis; Deny chest pain, dyspnea, headache(s), nausea, rash, palpitations or vomiting Review of Systems Const: Reports: diaphoresis; Denies: fever(s), chills or fatigue Eyes: Denies: change in vision or eye discomfort ENMT: Denies: throat pain, odynophagia, nasal discharge or nasal congestion Card: Denies: chest pain, palpitations, edema, swelling of feet/ankles, dyspnea on exertion or orthopnea Resp: Denies: dyspnea, productive cough or non-productive cough GI: Denies: abdominal pain, nausea, vomiting, diarrhea, constipation or hematochezia : Denies: flank pain, dysuria or hematuria Musc: Reports: muscle cramps; Denies: neck pain, back pain or extremity swelling Skin/Breast: Denies: rash or new lesions Neuro: Denies: headache(s), numbness in extremities or weakness in extremities [facility] ED PFSH: Medical History (Updated 04/10/22 @ 19:50 by ELA Villegas) Abdominal pain Acute pancreatitis Aspiration pneumonia Hypokalemia Hypomagnesemia Leukopenia Nausea & vomiting Surgical History (Updated 04/11/22 @ 02:24 by ELA Villegas) No pertinent past surgical history Social History Smoking and tobacco status: never smoked Alcohol intake: current Alcohol intake frequency: few times a week Physical Exam Const: COMMON NORMALS: no acute distress, patient oriented x3 and alert GENERAL APPEARANCE: cooperative HENMT: COMMON NORMALS: normocephalic HEAD & SCALP: normocephalic MOUTH: Normal oral and palatal mucosa present THROAT: posterior oropharynx normal and uvula midline Neck/C-Spine: COMMON NORMALS: supple GENERAL: Yes normal visual inspection Resp: COMMON NORMALS: normal respiratory effort, No retractions, No use of accessory muscles and clear to auscultation bilaterally AUSCULTATION: clear to auscultation bilaterally Cardio: COMMON NORMALS: regular rate, regular rhythm, S1 normal heart sound present, S2 normal heart sound present, No gallops present (Cardio), No clicks present (Cardio), No murmurs present (Cardio) and Peripheral pulses 2+ throughout RATE: regular rate RHYTHM: regular rhythm HEART SOUNDS: S1 normal heart sound present and S2 normal heart sound present PERIPHERAL PULSES: Peripheral pulses 2+ throughout GI: COMMON NORMALS: Normal to inspection, nondistended, normoactive bowel sounds present, Soft to palpation, non-tender and no masses PALPATION: Yes Soft to palpation : COMMON NORMALS: Yes no CVA tenderness BLADDER/KIDNEY EXAM: Yes no CVA tenderness Back/Pelvis: COMMON NORMALS: no CVA tenderness Extremity: COMMON NORMALS: normal to inspection Neuro: COMMON NORMALS: patient oriented x3 SENSORIUM/ORIENTATION: Yes alert GAIT: Yes Normal gait present Skin: GENERAL SKIN EXAM: dry skin Course Vital Signs: Vital signs: Vital Signs Temperature 98.1 F 04/10/22 17:41 Pulse Rate 88 04/10/22 19:59 Respiratory Rate 16 04/10/22 19:59 Blood Pressure 135/82 04/10/22 19:59 Pulse Oximetry 99 04/10/22 19:59 Oxygen Delivery Me thod 04/10/22 17:41 [facility] - General Adult Medical Decision Making Patient is a 32-year-old female comes to the ED with episode of whole body cramps. Episode occurred just prior to arrival. She was sitting in vehicle when she started developing some pain and cramping in her hands and she states that her fingers started locking out and getting stiff. Cramping then moved through her arms and then throughout her entire body and her legs. She started breaking out in a sweat. Episode lasted approximately 20 to 30 minutes and symptoms improved after she stopped at a gas station and got some Gatorade started drinking it. She also reports having some shakiness in her hands when it started and she still having some shakiness here in the ED. Muscle cramping throughout her body has pretty much resolved before arriving to the ED. She has had panic attacks in the past but states this 1 felt a little different. Denies any chest pain or shortness of breath. Vitals are stable. Exam of patient is benign and she appears in no acute distress or pain. CBC was unremarkable. [id number] glucose test was 176. Potassium of 3.2 but the rest of CMP was unremarkable. EKG showed normal sinus rhythm with no ST segment ovation or depression seen. Patient was given dose of potassium chloride and Vistaril here in the ED. She was diagnosed with muscle cramps which could likely have stemmed from her intermittent anxiety/panic attack. She was stable for discharge home and told to follow-up with her PCP within the next week for reevaluation. Return to ED precautions given. Patient understood and agreed with plan. Lab Data I reviewed the patient's lab results. 04/10/22 18:30 04/10/22 18:30 Laboratory Results WBC 8.7 10^3/uL (4.0-10.0) 04/10/22 18:30 RBC 4.68 10^6/uL (4.1-5.3) 04/10/22 18:30 Hgb 14.5 g/dL (11.5-15.3) 04/10/22 18:30 Hct 41.9 % (37.0-47.0) 04/10/22 18:30 MCV 89.5 fl (81-99) 04/10/22 18:30 MCH 31.0 pg (28.0-34.0) 04/10/22 18: MCHC 34.6 g/dL (30.0-36.0) 04/10/22 18:30 RDW 11.9 % (12.1-15.1) L 04/10/22 18:30 Plt Count 385 10^3/cmm (130-400) 04/10/22 18:30 MPV 9.1 fL (7.4-10.4) 04/10/22 18:30 Neut % (Auto) 76.0 % 04/10/22 18:30 Lymph % (Auto) 12.5 % 04/10/22 18:30 [place] % (Auto) 9.4 % 04/10/22 18:30 Eos % (Auto) 0.6 % 04/10/22 18:30 Baso % (Auto) 0.9 % 04/10/22 18:30 Neut # (Auto) 6.64 10^3/uL (1.8-7.7) 04/10/22 18:30 Lymph # (Auto) 1.1 10^3/uL (0.8-4.8) 04/10/22 18:30 [place] # (Auto) 0.8 10^3/uL (0.2-0.9) 04/10/22 18:30 Eos # (Auto) 0.1 10^3/uL (0.0-0.8) 04/10/22 18:30 Baso # (Auto) 0.1 10^3/uL (0.0-0.1) 04/10/22 18:30 Nucleated RBC % (auto) 0 % 04/10/22 18: Nucleated RBCs # 0.0 /100WBC 04/10/22 18:30 Sodium 131 mmol/L (136-145) L 04/10/22 18:30 Potassium 3.2 mmol/L (3.5-5.1) L 04/10/22 18:30 Chloride 92 mmol/L (98-107) L 04/10/22 18:30 Carbon Dioxide 21 mmol/L (22-29) L 04/10/22 18:30 Anion Gap 21.2 (5-19) H 04/10/22 18:30 BUN 6 mg/dL (6-20) 04/10/22 18:30 Creatinine 0.7 mg/dL (0.5-0.9) 04/10/22 18:30 GFR Calculation 97.6 mL/min (90-130) 04/10/22 18:30 Glucose 173 mg/dL (65-115) H 04/10/22 18:30 POC Glucose 176 mg/dL (70-110) H 04/10/22 18:33 Calculated Osmolality 274 mOsm/kg (285-295) L 04/10/22 18:30 Calcium 9.1 mg/dL (8.5-10.5) 04/10/22 18:30 Total Bilirubin 0.6 mg/dL (0.15-1.2) 04/10/22 18:30 AST 52 U/L (0-32) H 04/10/22 18:30 ALT 33 U/L (0-33) 04/10/22 18:30 Alkaline Phosphatase 106 U/L (35-105) H 04/10/22 18:30 Total Protein 8.4 g/dL (6.6-8.7) 04/10/22 18:30 Albumin 4.3 g/dL (3.5-5.2) 04/10/22 18:30 Globulin 4.1 g/dL (1.3-4.6) 04/10/22 18:30 EKG Data EKG 1: EKG interpretation date: 04/10/22 Interpretation: Normal sinus rhythm with no ST segment ovation depression seen. 99 bpm. Discharge Plan Discharge Patient Disposition: Home Clinical Impression: Cramps, muscle, general Condition: Stable Prescriptions: No Action folic acid 1 mg Tablet 1 mg PO DAILY Qty: 60 0RF Vitamin B-1 (mononitrate) 100 mg Tablet 100 mg PO DAILY Qty: 6 0RF potassium chloride 20 mEq tablet extended release 20 meq PO DAILY Qty: 20 0RF magnesium 200 mg tablet 200 mg PO DAILY Qty: 20 0RF Discharge Orders: Discharge ED (Routine); Ordered 04/10/22 Ordered By: Dany Cr Discharge Diet: Regular Discharge Activity: Increase activity as tolerated Activity Restrictions/Additional Instructions: Follow-up with medical provider as directed in the next 5 to 7 days for reevaluation. Continue taking all home medications as previously prescribed. Return to the ER or your medical provider if condition worsens. Please read and understand discharge instructions. Thank you for choosing [facility] [place] for your healthcare needs today. Please realize this is an emergency room and that we are providing you with a medical screening exam and this may not be complete and all inclusive of all the testing and or work up that you may need to determine your ailment or severity of your illness. It is very important that you follow up as instructed or that you return to the Emergency Department should you have concerns or if your condition changes or worsens in any way. Stand Alone Forms: Work/School Release Coding Level of Care Code ED Shift Coordinator for Chg Fwd Exam Comprehensive
[2022-04-10 18:38] LABS: Glucose Point of Care 176 mg/dL (70-110)
[2022-04-10 19:01] LABS: Basophils # 0.1 10^3/uL (0.0-0.1); Basophils % 0.9 %; Eosinophils # 0.1 10^3/uL (0.0-0.8); Eosinophils % 0.6 %; Hematocrit 41.9 % (37.0-47.0); Hemoglobin 14.5 g/dL (11.5-15.3); Lymphocytes # 1.1 10^3/uL (0.8-4.8); Lymphocytes % 12.5 %; Mean Corpuscular HGB Conc 34.6 g/dL (30.0-36.0); Mean Corpuscular Volume 89.5 fl (81-99); Mean Platelet Volume 9.1 fL (7.4-10.4); Monocytes # 0.8 10^3/uL (0.2-0.9); Monocytes % 9.4 %; Neutrophils # 6.64 10^3/uL (1.8-7.7); Nucleated Red Blood Cells % 0 %; Platelet Count 385 10^3/cmm (130-400); Red Blood Count 4.68 10^6/uL (4.1-5.3); Red Cell Distribution Width 11.9 % (12.1-15.1); White Blood Count 8.7 10^3/uL (4.0-10.0)
[2022-04-10 19:18] LABS: Alanine Aminotransferase 33 U/L (0-33); Albumin Level 4.3 g/dL (3.5-5.2); Alkaline Phosphatase 106 U/L (35-105); Anion Gap 21.2 (5-19); Aspartate Amino Transferase 52 U/L (0-32); Blood Urea Nitrogen 6 mg/dL (6-20); Calcium 9.1 mg/dL (8.5-10.5); Carbon Dioxide 21 mmol/L (22-29); Chloride 92 mmol/L (98-107); Globulin 4.1 g/dL (1.3-4.6); Glomerular Filtration Rate 97.6 mL/min (90-130); Glucose 173 mg/dL (65-115); Osmolality Calculated 274 mOsm/kg (285-295); Potassium 3.2 mmol/L (3.5-5.1); Sodium 131 mmol/L (136-145); Total Bilirubin 0.6 mg/dL (0.15-1.2); Total Protein 8.4 g/dL (6.6-8.7)
[2022-04-10] MEDS: hyDROXYzine 25 mg Capsule 50 MG PO (19:25)
[2022-04-10] MEDS: potassium chloride ER 20 mEq Tablet PO (19:55)
[2022-04-10 19:59] VITALS: BP 135/82; PULSE 88; RESP 16; O2SAT 99
== END 2022-04-10 20:00 | disposition home or self-care (01) ==
PROVIDERS: Emergency Provider Physician Assistant
DX: R25.2 Cramp and spasm (principal)
CPT/HCPCS: 36416; 80053; 82962; 85025; 93005; 99284